=== PATIENT | female | born 1985 | race Caucasian/White ===

== ENCOUNTER 2017-11-24 17:45 | Emergency (ER) | payer OTHER ==
[~2017-11-24] VITALS: Ht 157.5 cm; Wt 45.4 kg
[2017-11-24 17:53] VITALS: Ht 157.5 cm; Wt 45.4 kg
[2017-11-24 18:47] LABS: BASOPHIL % 0.6 % (0-2); PLATELET COUNT 288 x10^3mcL (130-400)
[2017-11-24 18:58] LABS: RED CELL DISTRIBUTION WIDTH 14.9 % (11.5-14.5)
[2017-11-24 19:10] LABS: CALCIUM 9.5 mg/dL (8.5-10.1); CARBON DIOXIDE 26.6 mmol/L (21-32); CHLORIDE SERUM 106 mmol/L (98-107); CREATININE SERUM 1.2 mg/dL (0.6-1.0); GFR1 55 mL/min; GLUCOSE SERUM 123 mg/dL (74-106); POTASSIUM SERUM 3.9 mmol/L (3.5-5.1); SODIUM SERUM 140 mmol/L (136-145)
[2017-11-24 19:14] LABS: ALBUMIN 3.6 g/dL (3.4-5.0); ALKALINE PHOSPHATASE 88 U/L (46-116); ALT/SGPT 24 U/L (14-59); AST/SGOT 23 U/L (15-37); BILIRUBIN TOTAL 0.2 mg/dL (0.20-1.00); TOTAL PROTEIN, SERUM 7.6 g/dL (6.4-8.2)
[2017-11-24 20:08] LABS: AMPHETAMINE QUAL UR POSITIVE (NEG <=1000)
[2017-11-24 21:00] VITALS: BP 164/110
== END 2017-11-24 21:00 | disposition home or self-care (01) ==
LOC: ED 17:45
PROVIDERS: Emergency Medicine
DX: F15.10 Other stimulant abuse, uncomplicated (principal); I15.8 Other secondary hypertension; E03.9 Hypothyroidism, unspecified
CPT/HCPCS: G0480; J1885; J2405; J7030

== ENCOUNTER 2017-12-08 12:26 | Emergency (ER) | payer OTHER ==
[~2017-12-08] VITALS: Ht 157.5 cm; Wt 48.1 kg
[2017-12-08 12:37] VITALS: Ht 157.5 cm; Wt 48.1 kg
[2017-12-08 15:02] VITALS: BP 156/108
== END 2017-12-08 15:02 | disposition other institution (70) ==
LOC: ED 12:26
DX: R06.4 Hyperventilation (principal); I10 Essential (primary) hypertension; F15.20 Other stimulant dependence, uncomplicated; R20.2 Paresthesia of skin; E03.9 Hypothyroidism, unspecified
CPT/HCPCS: J3490

== ENCOUNTER 2018-06-21 23:16 | Emergency (ER) | payer OTHER ==
[~2018-06-21] VITALS: Ht 157.5 cm; Wt 52.2 kg
[2018-06-21 23:18] VITALS: Ht 157.5 cm; Wt 52.2 kg
[2018-06-21 23:38] VITALS: BP 182/123
== END 2018-06-21 23:38 | disposition other institution (70) ==
LOC: ED 23:16
DX: Z02.89 Encounter for other administrative examinations (principal)

== ENCOUNTER 2019-02-23 13:46 | Emergency (ER) | payer SELFPAY ==
[~2019-02-23] VITALS: Ht 157.5 cm; Wt 54.9 kg
[2019-02-23 13:50] VITALS: BP 176/132; Ht 157.5 cm; Wt 54.9 kg
== END 2019-02-23 16:21 | disposition left against medical advice (07) ==
LOC: ED 13:46
DX: Z53.21 Procedure and treatment not carried out due to patient leaving prior to being seen by health care provider (principal)

== ENCOUNTER 2019-02-23 21:49 | Emergency (ER) | payer SELFPAY ==
[~2019-02-23] VITALS: Ht 157.5 cm; Wt 55.3 kg
[2019-02-23 22:34] LABS: BASOPHIL % 0.8 % (0-2); PLATELET COUNT 364 x10^3mcL (130-400)
[2019-02-23 22:35] LABS: RED CELL DISTRIBUTION WIDTH 17.8 % (11.5-14.5)
[2019-02-23 22:42] LABS: CALCIUM 8.4 mg/dL (8.5-10.1); CARBON DIOXIDE 25.2 mmol/L (21-32); CREATININE SERUM 1.4 mg/dL (0.6-1.0); POTASSIUM SERUM 3.8 mmol/L (3.5-5.1)
[2019-02-23 22:47] LABS: BILIRUBIN TOTAL 0.2 mg/dL (0.20-1.00); TOTAL PROTEIN, SERUM 7.9 g/dL (6.4-8.2)
[2019-02-23 22:59] LABS: ALBUMIN 3.1 g/dL (3.4-5.0)
[2019-02-23 23:33] VITALS: BP 172/115
== END 2019-02-23 23:33 | disposition home or self-care (01) ==
LOC: ED 21:49
PROVIDERS: Emergency Medicine
DX: R51 Headache (principal); I10 Essential (primary) hypertension; E03.9 Hypothyroidism, unspecified; Z98.890 Other specified postprocedural states
CPT/HCPCS: J0780; J1885; Q0162

== ENCOUNTER 2019-04-05 18:18 | Emergency (ER) | payer SELFPAY ==
[~2019-04-05] VITALS: Ht 157.5 cm; Wt 49.9 kg
[2019-04-05 18:28] VITALS: Ht 157.5 cm; Wt 49.9 kg
[2019-04-05 19:06] VITALS: BP 167/116
== END 2019-04-05 20:05 | disposition other institution (70) ==
LOC: ED 18:18
DX: J02.9 Acute pharyngitis, unspecified (principal); I10 Essential (primary) hypertension; E78.00 Pure hypercholesterolemia, unspecified; E03.9 Hypothyroidism, unspecified; Z98.890 Other specified postprocedural states

== ENCOUNTER 2019-04-05 18:18 | Emergency (ER) | payer OTHER | END 2019-04-05 20:50 | disposition other institution (70) | LOC: ED 18:18 | DX: Z02.89 Encounter for other administrative examinations (principal) ==

== ENCOUNTER 2019-05-31 21:54 | Inpatient (IN) | payer MEDICAID ==
[~2019-05-31] VITALS: Ht 157.5 cm; Wt 58.5 kg
[2019-05-31 22:00] VITALS: Ht 157.5 cm; Wt 58.5 kg
[2019-05-31 22:42] LABS: BASOPHIL % 0.5 % (0-2); PLATELET COUNT 374 x10^3mcL (130-400)
[2019-05-31 22:45] LABS: RED CELL DISTRIBUTION WIDTH 16.9 % (11.5-14.5)
[2019-05-31 22:53] LABS: CALCIUM 8.8 mg/dL (8.5-10.1); CARBON DIOXIDE 33.1 mmol/L (21-32); CREATININE SERUM 1.5 mg/dL (0.6-1.0); POTASSIUM SERUM 3.6 mmol/L (3.5-5.1)
[2019-05-31 22:57] LABS: ALBUMIN 3.5 g/dL (3.4-5.0); BILIRUBIN TOTAL 0.14 mg/dL (0.20-1.00)
[2019-05-31 22:59] LABS: TOTAL PROTEIN, SERUM 8.5 g/dL (6.4-8.2)
[2019-06-01] VITALS (7 sets, daily range): BP systolic 131–199; BP diastolic 73–123
[2019-06-01] MEDS ORDERED: LEVOTHYROXIN0.025 M2 (00:04)
[2019-06-01 01:06] LABS: CHOLESTEROL/HDL RATIO 3.9; PHOSPHOROUS 3.2 mg/dL (2.5-4.9)
[2019-06-01 01:13] LABS: T3 TOTAL 0.64 ng/mL
[2019-06-01 01:16] LABS: FREE T4 0.64 ng/dL (0.76-1.46); FREE THYROXINE INDEX 1.3 ug/dL (1.4-4.5); T4(THYROXINE) 5.3 ug/dL (4.7-13.3)
[2019-06-01 05:44] LABS: microscopic required? YES; urine erythrocyte NEGATIVE (NEGATIVE)
[2019-06-01 06:10] LABS: AMPHETAMINE QUAL UR POSITIVE (See below)
[2019-06-01 06:26] LABS: BASOPHIL % 0.4 % (0-2); PLATELET COUNT 352 x10^3mcL (130-400)
[2019-06-01 06:32] LABS: RED CELL DISTRIBUTION WIDTH 16.8 % (11.5-14.5)
[2019-06-01 06:49] LABS: CALCIUM 8.7 mg/dL (8.5-10.1); CARBON DIOXIDE 26.7 mmol/L (21-32); CREATININE SERUM 1.4 mg/dL (0.6-1.0); MAGNESIUM 2.1 mg/dL (1.8-2.4); PHOSPHOROUS 2.9 mg/dL (2.5-4.9); POTASSIUM SERUM 3.9 mmol/L (3.5-5.1)
== END 2019-06-01 19:54 | disposition left against medical advice (07) | DRG 199 ==
LOC: ED 21:54 → DU 23:46
PROVIDERS: Emergency Medicine; Internal Medicine; ADMIT Internal Medicine
DX: I16.1 Hypertensive emergency (principal); N17.0 Acute kidney failure with tubular necrosis; I21.A1 Myocardial infarction type 2; A56.8 Sexually transmitted chlamydial infection of other sites; E03.9 Hypothyroidism, unspecified; F12.10 Cannabis abuse, uncomplicated; F15.10 Other stimulant abuse, uncomplicated; E87.1 Hypo-osmolality and hyponatremia; D72.829 Elevated white blood cell count, unspecified; E87.8 Other disorders of electrolyte and fluid balance, not elsewhere classified; E78.5 Hyperlipidemia, unspecified; D64.9 Anemia, unspecified; Z68.22 Body mass index [BMI] 22.0-22.9, adult; Z91.14 Patient's other noncompliance with medication regimen
CPT/HCPCS: 83880; 84439; G0378; J0360; J1650; J1885; J2270; J2930; J3490; J7030; Q0092

== ENCOUNTER 2019-06-26 21:51 | Emergency (ER) | payer MEDICAID ==
[~2019-06-26] VITALS: Ht 157.5 cm; Wt 52.2 kg
[~2019-06-26 21:51] MED LIST: LEVOTHYROXIN0.025 M2
[2019-06-26 22:01] VITALS: Ht 157.5 cm; Wt 52.2 kg
[2019-06-26 22:50] VITALS: BP 184/129
== END 2019-06-26 22:50 | disposition other institution (70) ==
LOC: ED 21:51
DX: I10 Essential (primary) hypertension (principal); E03.9 Hypothyroidism, unspecified; E78.00 Pure hypercholesterolemia, unspecified; Z88.8 Allergy status to other drugs, medicaments and biological substances

== ENCOUNTER 2019-06-26 21:51 | Emergency (ER) | payer OTHER | END 2019-06-26 22:50 | disposition other institution (70) | LOC: ED 21:51 | DX: Z02.89 Encounter for other administrative examinations (principal) ==

== ENCOUNTER 2019-11-09 08:13 | Emergency (ER) | payer OTHER ==
[~2019-11-09] VITALS: Ht 157.5 cm; Wt 58.5 kg
[2019-11-09 08:18] VITALS: Ht 157.5 cm; Wt 58.5 kg
[2019-11-09 09:10] LABS: BASOPHIL % 0.3 % (0-2); PLATELET COUNT 311 x10^3mcL (130-400); RED CELL DISTRIBUTION WIDTH 18.4 % (11.5-14.5)
[2019-11-09 09:16] LABS: CALCIUM 9.7 mg/dL (8.5-10.1); CARBON DIOXIDE 27.8 mmol/L (21-32); CREATININE SERUM 1.5 mg/dL (0.6-1.0); POTASSIUM SERUM 3.3 mmol/L (3.5-5.1)
[2019-11-09 09:21] LABS: BILIRUBIN TOTAL 0.47 mg/dL (0.20-1.00)
[2019-11-09 09:23] LABS: CHOLESTEROL/HDL RATIO 4.1; TOTAL PROTEIN, SERUM 8.4 g/dL (6.4-8.2)
[2019-11-09 09:56] LABS: UA SPECIFIC GRAVITY 1.015 (1.005-1.035); microscopic required? YES; urine erythrocyte NEGATIVE (NEGATIVE)
[2019-11-09 13:52] VITALS: BP 135/87
== END 2019-11-09 13:52 | disposition home or self-care (01) ==
LOC: ED 08:13
PROVIDERS: Specialist
DX: N83.202 Unspecified ovarian cyst, left side (principal); N28.9 Disorder of kidney and ureter, unspecified; I10 Essential (primary) hypertension; E78.00 Pure hypercholesterolemia, unspecified; E03.9 Hypothyroidism, unspecified; Z88.8 Allergy status to other drugs, medicaments and biological substances; Z98.890 Other specified postprocedural states
CPT/HCPCS: 36415; Q0092

== ENCOUNTER 2020-03-31 17:15 | Emergency (ER) | payer OTHER ==
[~2020-03-31] VITALS: Ht 157.5 cm; Wt 62.1 kg
[2020-03-31 17:24] VITALS: Ht 157.5 cm; Wt 62.1 kg
[2020-03-31 17:56] LABS: BASOPHIL % 0.6 % (0-2); PLATELET COUNT 370 x10^3mcL (130-400); RED CELL DISTRIBUTION WIDTH 16.7 % (11.5-14.5)
[2020-03-31 18:01] LABS: CALCIUM 10.2 mg/dL (8.5-10.1); CARBON DIOXIDE 33.2 mmol/L (21-32); POTASSIUM SERUM 3.7 mmol/L (3.5-5.1)
[2020-03-31 18:13] LABS: BILIRUBIN TOTAL 0.5 mg/dL (0.20-1.00)
[2020-03-31 18:19] LABS: TOTAL PROTEIN, SERUM 8.8 g/dL (6.4-8.2)
[2020-03-31 18:26] LABS: T3 TOTAL 0.48 ng/mL
[2020-03-31 19:20] VITALS: BP 191/126
== END 2020-03-31 19:20 | disposition home or self-care (01) ==
LOC: ED 17:15
PROVIDERS: Emergency Medicine
DX: R07.89 Other chest pain (principal); I12.9 Hypertensive chronic kidney disease with stage 1 through stage 4 chronic kidney disease, or unspecified chronic kidney disease; N18.9 Chronic kidney disease, unspecified; R51.9 Headache, unspecified; E03.9 Hypothyroidism, unspecified; E78.00 Pure hypercholesterolemia, unspecified; Z88.8 Allergy status to other drugs, medicaments and biological substances
CPT/HCPCS: Q0092